=== PATIENT | female | born 1995 ===

== ENCOUNTER → 2017-12-27 | Outpatient (REF) | payer OTHER ==
[2017-12-27 17:58] LABS: HEMOGLOBIN 13.9 g/dl (12.0-15.5); MEAN CORPUSCULAR HEMOGLOBIN 30.8 pg (27.0-33.0); MEAN CORPUSCULAR HGB CONC 33.9 g/dl (32.0-36.5); MEAN CORPUSCULAR VOLUME 90.9 fl (80.0-96.0); PLATELET COUNT, AUTOMATED 338 10^3/uL (150-450); RED BLOOD COUNT 4.51 10^6/uL (4.00-5.40); RED CELL DISTRIBUTION WIDTH 12.8 % (11.5-14.5); WHITE BLOOD COUNT 8.9 10^3/uL (4.0-10.0)
[2017-12-27 18:33] LABS: FOLLICLE STIMULATING HORMONE 8.9 mIU/mL; LUTEINIZING HORMONE 8.1 mIU/mL
[2017-12-27 18:38] LABS: FREE T4 1.08 NG/DL (0.76-1.46); HCG, SERUM QUANTITATIVE < 1.0 MIU/ML
== END ==
LOC: M LAB REF 17:04
DX: N92.1 Excessive and frequent menstruation with irregular cycle (principal)

== ENCOUNTER → 2018-07-17 | Outpatient (CLI) | payer OTHER ==
--- NOTE | 2018-07-17 13:04 | REP ---
PA and lateral chest: There are no comparisons. The lung ochoa are clear. The cardiac size is normal. The regina, mediastinum, and skeletal structures are unremarkable. Impression: Negative PA and lateral chest. There is body jewelry in the breast nipples bilaterally. Electronically Signed by Jeff Gonzalez MD 07/17/2018 12:56 P
== END ==
LOC: M LRY 12:14
PROVIDERS: ATTEND Nurse Practitioner Family
DX: R09.89 Other specified symptoms and signs involving the circulatory and respiratory systems (principal)